=== PATIENT | female | born 1970 | race Caucasian/White ===

== ENCOUNTER → 2017-01-23 | Outpatient (CLI) | payer MEDICAID ==
[~2017-01-23] MED LIST: BACLOFEN10 MG PO; CALAN80 MG PO; CARAFATE1 GM PO; DRISDOL 5050000 UNIT PO; EXCEDRIN MIGRA1 EACH PO; MAG-OX-400(241400 MG PO; METAMUCIL PACKE1 PKT PO; MIRALAX17 GM PO; NORCO 5-325 MG1 TAB PO; PRILOSEC20 MG PO; PROVENTIL OR V6.7 GM INH; SUDAFED30 M1 PO; SUDAFED30 MG PO; VITAMIN D50000 UNIT PO
[2017-01-23 12:59] LABS: CREATININE 0.7 mg/dL (0.5-1.1)
[2017-01-23 13:01] LABS: ESTIMATED GFR (MDRD EQUATION) > 60
== END | disposition disaster alternative care site (69) ==
LOC: GRAD 12:05
PROVIDERS: Internal Medicine Adolescent Medicine
DX: K59.09 Other constipation (principal); K63.89 Other specified diseases of intestine; R10.9 Unspecified abdominal pain